=== PATIENT | male | born 1960 | race Caucasian/White ===

== ENCOUNTER 2018-08-10 00:10 | Emergency (ER) | payer SELFPAY ==
[2018-08-10 00:52] LABS: #Lymphocytes 0.8 thou/uL (1.20-3.40); #Monocytes 0.6 thou/uL (0.11-0.59); #Neutrophils 9.1 thou/uL (1.40-6.50); %Basophils 0.2 % (0.0-1.0); %Lymphocytes 7.6 % (21.0-51.0); %Monocytes 5.8 % (0.0-10.0); %Neutrophils 86.4 % (42.0-75.0); Hemoglobin 12.7 g/dL (14.0-18.0); Mean Corpuscular HGB CONC 34.5 g/dL (32.0-36.0); Mean Corpuscular Hemoglobin 28.9 pg (27.0-31.0); Mean Corpuscular Volume 83.8 fL (78.0-98.0); Mean Platelet Volume 5.9 fL (7.4-10.4); Platelet Count 357 thou/uL (130-400); Red Blood Cell (RBC) Count 4.39 mill/uL (4.70-6.10); White Blood Cell (WBC) Count 10.6 thou/uL (4.8-10.8)
[2018-08-10 01:17] LABS: ALT (SGPT) 15 U/L (8-55); AST (SGOT) 15 U/L (5-34); Albumin 3.9 g/dL (3.5-5.0); Alkaline Phosphatase 26 U/L (40-150); Anion Gap 14 mmol/L (10-20); BUN (Urea Nitrogen) 17 mg/dL (8.4-25.7); Bilirubin, Total 0.6 mg/dL (0.2-1.2); CK (CPK) 57 U/L (30-200); Calc. Creatinine Clearance 0 mL/min (70-130); Calcium 9.3 mg/dL (7.8-10.44); Carbon Dioxide 22 mmol/L (22-29); Chloride 102 mmol/L (98-107); Estimated GFR-MDRD Greater than 90; Globulin 2.7 g/dL (2.4-3.5); Glucose 120 mg/dL (70-105); Potassium 4.5 mmol/L (3.5-5.1); Protein, Total 6.6 g/dL (6.0-8.3); Sodium 133 mmol/L (136-145)
[2018-08-10] MEDS ORDERED: Lorazepam 1 MG TAB ONE (01:55)
--- NOTE | 2018-08-10 07:47 | RAD ---
CHEST 1 VIEW: Date: 08/10/18 INDICATION: History of fall with right-sided neck pain and dysphagia. COMPARISON: None. FINDINGS: There is air space opacity of the right lower lobe. There is mild left perihilar air space opacity. H eart size is mildly prominent. Pulmonary vasculature appears within normal limits. No pleural effusio n or pneumothorax is evident. There is a single lead AICD overlying the left chest wall. IMPRESSION: Prominent area of right infrahilar air space consolidation suspicious for pneumonia. There is some pe rihilar opacity seen within the left lung which may reflect additional focal infiltrate. Recommend co ntinued follow-up. POS: BH
== END 2018-08-10 01:25 ==
LOC: EEVIPCON 00:10 → ERS 00:10
DX: R22.1 Localized swelling, mass and lump, neck (principal); J44.9 Chronic obstructive pulmonary disease, unspecified; F41.9 Anxiety disorder, unspecified; Z87.891 Personal history of nicotine dependence
CPT/HCPCS: 36415; 71045; 80053; 82550; 84484; 85025; 93005